=== PATIENT | male | born 1955 | race Hispanic/Latino ===

== ENCOUNTER 2021-12-18 08:29 | Day surgery (SDC) | payer MEDICARE ==
[2021-12-14 11:08] LABS: BASOPHILS % (AUTO) 1.5 % (0.0-5.0); EOSINOPHILS % (AUTO) 2.5 % (0.0-8.0); LYMPHOCYTES % (AUTO) 17.1 % (21.0-51.0); MEAN CORPUSCULAR HEMOGLOBIN 28.4 pg (27.0-33.0); MEAN CORPUSCULAR HGB CONC 32.6 g/dL (32.0-36.0); MEAN CORPUSCULAR VOLUME 87.1 fL (79-99); MONOCYTES % (AUTO) 8.5 % (3.0-13.0); NEUTROPHILS % (AUTO) 69.8 % (40.0-77.0); PLATELET COUNT (AUTO) 166 K/uL (130-400); RED BLOOD CELL COUNT(AUTO) 5.28 MIL/uL (4.50-6.20); WHITE BLOOD COUNT (AUTO) 6.8 K/uL (4.8-10.8)
[2021-12-14 11:14] LABS: CREATININE 1.5 mg/dL (0.5-1.5); POTASSIUM 4.9 mmol/L (3.5-5.1)
[2021-12-17 13:36] VITALS: BP 141/71
[~2021-12-18] VITALS: Ht 170.2 cm; Wt 97.3 kg
[2021-12-18] VITALS (19 sets, daily range): BP systolic 100–134; BP diastolic 62–77
[~2021-12-18 08:29] MED LIST: 0.9%NACL 1000ML 1,000 ML IV SCH; FINA5TAB2 PO; LOSA100T58 PO; MV-M1TAB20 PO; ROSU40TA21 PO
[2021-12-18] MEDS ORDERED: LACTATED RINGERS 1000ML 1,000 ML IV ONE (10:15)
[2021-12-18] MEDS: CEFAZOLIN SODIUM 1 GM VIAL IVP SCH ×2 (10:45→12:22)
[2021-12-18] MEDS ORDERED: BUPIVACAINE/PF 0.5% 30ML VIAL ONE (11:54)
[2021-12-18] MEDS ORDERED: PROPOFOL 10 MG/ML 20ML VIAL IV ONE (12:06)
[2021-12-18] MEDS ORDERED: SUCCINYLCHOLINE 200MG/10ML SYR ONE (12:06)
[2021-12-18] MEDS ORDERED: MIDAZOLAM HCL 1 MG/ML 2ML VIAL ONE (12:06)
[2021-12-18] MEDS ORDERED: FENTANYL CITRATE PF 50 MCG/1 ML 2ML VIAL ONE (12:06)
[2021-12-18] MEDS ORDERED: LIDOCAINE PF 100MG/5ML (2%) SYRINGE 5ML ONE ×2 (12:06→12:10)
[2021-12-18] MEDS ORDERED: ROCURONIUM 10MG/1ML SYR 10 MG/ML ML ONE (12:06)
[2021-12-18] MEDS ORDERED: 0.9%NACL 10ML VIAL ONE (12:45)
[2021-12-18] MEDS ORDERED: ROPIVACAINE 0.5% 5MG/ML 30ML IJ ONE ×2 (13:23→13:37)
[2021-12-18] MEDS ORDERED: GLYCOPYRROLATE 1 MG/5 ML SYRINGE ONE (13:25)
[2021-12-18] MEDS ORDERED: NEOSTIGMINE 5MG/5ML SYR IV ONE (13:25)
[2021-12-18] MEDS ORDERED: ONDANSETRON 4MG INJ ONE (13:25)
[2021-12-18] MEDS ORDERED: ALBUTEROL INHALER 90MCG/INH IH ONE (13:58)
[2021-12-18] MEDS ORDERED: IPRATROPIUM/ALBUTEROL SULFATE 3 ML SOLUTION IH ONE (14:22)
[2021-12-18] MEDS ORDERED: MEPERIDINE-PF 25 MG/ML SYG ONE (14:29)
== END 2021-12-18 16:20 | disposition home or self-care (01) ==
LOC: DAH 08:29
PROVIDERS: ATTEND Surgery
DX: K40.90 Unilateral inguinal hernia, without obstruction or gangrene, not specified as recurrent (principal); Z20.822 Contact with and (suspected) exposure to COVID-19; D17.6 Benign lipomatous neoplasm of spermatic cord; I10 Essential (primary) hypertension; E66.9 Obesity, unspecified; E78.5 Hyperlipidemia, unspecified; Z80.9 Family history of malignant neoplasm, unspecified; Z68.32 Body mass index [BMI] 32.0-32.9, adult; Z79.899 Other long term (current) drug therapy; Z98.890 Other specified postprocedural states; Z87.891 Personal history of nicotine dependence
CPT/HCPCS: 36415; 49650; 64488; 71045; 80048; 85025; 87635; 93005; 94640; A4215 ×2; A4221; A4222; A4223; A4344; A4649; A4663; A6260; C1781; C9803; G0168; J0330; J0690; J2001 ×2; J2175; J2250; J2405; J2704; J2710; J2795 ×2; J3010; J3490 ×2; J7120 ×2

== ENCOUNTER 2021-12-18 23:38 | Emergency (ER) | payer MEDICARE ==
[~2021-12-18] VITALS: Ht 170.2 cm; Wt 98.0 kg
[~2021-12-18 23:38] MED LIST changes: -0.9%NACL 1000ML 1,000 ML IV SCH
[2021-12-19] MEDS ORDERED: CEFTRIAXONE 1G VIAL IVP ONE (00:30)
[2021-12-19] MEDS ORDERED: 0.9% NACL 500ML IV.SOLN 500 ML IV ONE (00:30)
[2021-12-19 01:08] LABS: BILIRUBIN,URINE NEGATIVE (NEGATIVE); COLOR,URINE YELLOW (YELLOW); GLUCOSE, URINE (UA) NEGATIVE (NEGATIVE); KETONES,URINE NEGATIVE (NEGATIVE); LEUKOCYTE ESTERASE ,URINE NEGATIVE (NEGATIVE); NITRATE,URINE NEGATIVE (NEGATIVE); OCCULT BLOOD,URINE LARGE (NEGATIVE); PROTEIN,URINE 30 mg/dL (NEGATIVE); UROBILINOGEN,URINE 0.2 mg/dL (0.2-1.0)
[2021-12-19 01:20] VITALS: BP 130/74
[2021-12-19 01:24] LABS: RBC,URINE TNTC /HPF (0-1)
[2021-12-19 01:26] LABS: BACTERIA,URINE Rare /HPF (None Seen); SQUAMOUS EPITHELIAL CELL,UR Rare /HPF (0-2)
[2021-12-19 01:28] LABS: APPEARANCE,URINE SLIGHTLY CLOUDY (CLEAR)
== END 2021-12-19 01:55 | disposition home or self-care (01) ==
LOC: EDH 23:38
DX: R33.9 Retention of urine, unspecified (principal); E78.00 Pure hypercholesterolemia, unspecified; I10 Essential (primary) hypertension; Z79.1 Long term (current) use of non-steroidal anti-inflammatories (NSAID); Z79.899 Other long term (current) drug therapy
CPT/HCPCS: 51702; 81001; 87088; 96374; 99284; J0696; J7040